=== PATIENT | male | born 1955 | race Caucasian/White ===

== ENCOUNTER 2021-01-16 12:37 | Emergency (ER) | payer OTHER ==
[2021-01-16 13:22] LABS: RED BLOOD COUNT 4.49 M/UL (4.20-5.50); WHITE BLOOD COUNT 11.8 K/UL (4.5-11.0)
[2021-01-16 14:15] LABS: BUN/CREATININE RATIO 26 (0-10)
== END 2021-01-16 15:30 | disposition short-term general hospital (02) ==
LOC: ER1 12:37
PROVIDERS: Emergency Medicine
DX: T58.91XA Toxic effect of carbon monoxide from unspecified source, accidental (unintentional), initial encounter (principal); I10 Essential (primary) hypertension; R74.02 Elevation of levels of lactic acid dehydrogenase [LDH]
CPT/HCPCS: 36600; 71045; 80053; 82550; 82553; 82803; 82805; 83605; 83874; 84484; 85025; 93005; 99285; J7030